=== PATIENT | female | born 1960 | race American Indian/Alaskan Native ===

== ENCOUNTER 2017-12-29 19:05 | Observation (INO) | payer OTHER ==
[2017-12-29] MEDS ORDERED: ASPIRIN PO ONE (19:43)
[2017-12-29] MEDS ORDERED: CATAPRES ONE (20:10)
[2017-12-29] MEDS ORDERED: CATAPRES PO ONE (20:15)
[2017-12-29 20:36] LABS: Basophils % (Auto) 0.5 % (0.0-1.8); Eosinophils % (Auto) 0.9 % (0.0-4.3); Hemoglobin 12.4 gm/dl (10.1-14.3); Lymphocytes # (Auto) 1.7 K/mm3 (1.2-5.4); Lymphocytes % (Auto) 45.1 % (13.4-35.0); Mean Corpuscular HGB Conc 33 % (30-34); Mean Corpuscular Hemoglobin 33 pg (28-32); Mean Corpuscular Volume 99 fl (79-97); Monocytes # (Auto) 0.3 K/mm3 (0.0-0.8); Monocytes % (Auto) 7.1 % (0.0-7.3); Platelet Count 261 K/mm3 (140-440); Red Blood Count 3.76 M/mm3 (3.65-5.03); Red Cell Distribution Width 14.6 % (13.2-15.2)
[2017-12-29 20:45] LABS: INR 0.83 (0.87-1.13)
[2017-12-29 20:46] LABS: Thrombin Time 14.8 Sec. (15.1-19.6)
[2017-12-29 21:02] LABS: BUN/Creatinine Ratio 18; Blood Urea Nitrogen 16 mg/dL (7-17); Calcium 10.1 mg/dL (8.4-10.2); Hemolysis Index 10
--- NOTE | 2017-12-29 21:21 | Cat Scan Report ---
FINAL REPORT PROCEDURE: CT HEAD/BRAIN WO CON TECHNIQUE: Computerized tomography of the head was performed without contrast material. HISTORY: neuro deficits < 6hrs or sx present upon awakening COMPARISON: No prior studies are available for comparison. FINDINGS: Brain: Brain density appears normal. No evidence of intracranial hemorrhage. No parenchymal hemorrhage, mass lesions or mass effect are seen. No abnormal extraxial fluid collects or masses are seen. Ventricles: Ventricles are normal size and are midline. Bone Windows: No evidence of skull fracture. Paranasal sinuses: Clear Mastoid air cells: Clear IMPRESSION: Negative unenhanced CT scan of the brain. If symptoms persist or worsen consider follow-up CT scan or MRI for further evaluation
[2017-12-30] MEDS ORDERED: ULTRAM PO ONE (01:28)
[2017-12-30] MEDS ORDERED: NEURONTIN PO ONE (01:28)
--- NOTE | 2017-12-30 01:39 | Emergency Department Report ---
ED Chest Pain HPI - General Chief Complaint: Chest Pain Stated Complaint: HYPERTENSIVE Time Seen by Provider: 12/30/17 01:16 Source: patient, old records reviewed (no cardiac workup on record) Mode of arrival: Ambulatory Limitations: No Limitations - History of Present Illness Initial Comments: 57-year-old female with past medical history diabetes, hypertension, and neck fusion surgery presents to the hospital with complaints of uncontrolled blood pressure, headache, and left arm paresthesias. Patient has had a left arm paresthesias in the past that improved after neck fusion surgery 2-3 years ago. For the past 1 month patient has been re- experiencing left arm paresthesias. No recent trauma or injury reported. Patient was treated in the past with gabapentin and tramadol which helped pain at the time. Patient has had a intermittent stabbing occipital headache with blurry vision for the last several days. Patient also complains of intermittent stabbing left chest pain but denies shortness of breath, leg edema, calf tenderness. Patient did recently return from a trip to [place] via car. Patient has recently back and forth to her PMD office Dr. Rios. She presents with recent paperwork from primary care doctor's office. She was seen on December 25 and blood pressure was 214/116. She was received clonidine and Toradol while in at the office. Blood pressure decreased prior to discharge she followed up the next day and states systolic pressure was in the 170s. Patient was started on clonidine 0.2 mg at bedtime, amlodipine 5 mg daily, and to continue lisinopril hydrochlorothiazide 20-12.5 mg 2 tablets daily. Patient reports that her last stress test was 5 years ago and she does not have any known cardiac disease. Patient was also be started on Naprosyn and cyclobenzaprine for left arm pain symptoms. Severity scale (0 -10): 5 - Related Data Previous Rx's Medication Instructions Recorded Last Taken Type Ibuprofen [Motrin] 800 mg PO Q8H #30 tablet 09/04/14 Unknown Rx methOCARBAMOL [Robaxin] 500 mg PO BID #30 tab 09/04/14 Unknown Rx traMADol [Ultram 50 MG tab] 50 mg PO Q6HR PRN #20 tablet 09/04/14 Unknown Rx Sulfamethoxazole/Trimethoprim 1 each PO BID #14 tablet 02/16/16 Unknown Rx [Bactrim DS TAB] Allergies Allergy/AdvReac Type Severity Reaction Status Date / Time No Known Allergies Allergy Verified 02/16/16 18:00 Heart Score - HEART Score History: Slightly suspicious EKG: Normal Age: 45-65 Risk factors: > 3 risk factors or hx of atherosclerotic disease Troponin: < normal limit HEART Score: 3 ED Review of Systems ROS: Stated complaint: HYPERTENSIVE Other details as noted in HPI Comment: All other systems reviewed and negative ED Past Medical Hx - Past Medical History Previous Medical History?: Yes Hx Hypertension: Yes Hx Diabetes: Yes (oral meds) Additional medical history: as per PMD office chart: Chronic left shoulder pain , psoriasis, mixed hyperlipidemia, mild intermittent asthma, cevicalgia, degenerative disc - Surgical History Past Surgical History?: Yes Additional Surgical History: CYSTS REMOVED BOTH OVARIES. neck, right eye surgery - Social History Smoking Status: Former Smoker - Medications Home Medications: Home Medications Medication Instructions Recorded Confirmed Last Taken Type Ibuprofen [Motrin] 800 mg PO Q8H #30 tablet 09/04/14 Unknown Rx methOCARBAMOL [Robaxin] 500 mg PO BID #30 tab 09/04/14 Unknown Rx traMADol [Ultram 50 MG tab] 50 mg PO Q6HR PRN #20 tablet 09/04/14 Unknown Rx Sulfamethoxazole/Trimethoprim 1 each PO BID #14 tablet 02/16/16 Unknown Rx [Bactrim DS TAB] ED Physical Exam - General Limitations: No Limitations - Other Other exam information: General: No limitations, patient is alert in no acute distress Head exam: Atraumatic, normocephalic Eyes exam: Normal appearance, pupils equal reactive to light, extraocular movements intact ENT: Moist mucous membrane, normal oropharynx Neck exam: Normal inspection, full range of motion, no meningismus nontender Respiratory exam: Clear to auscultation bilateral, no wheezes, rales, crackles Cardiovascular: Normal rate and rhythm, normal heart sounds Abdomen: Soft, nondistended, and nontender, with normal bowel sounds, no rebound, or guarding Extremity: Full range of motion normal inspection no deformity Back: Normal Inspection, full range of motion, no tenderness Neurologic: Alert, oriented x3, cranial nerves intact, 5/5 upper and lower extremity strength. Decreased sensation to light touch of the left arm compared to the right Psychiatric: normal affect, normal mood Skin: Warm, dry, intact ED Course Vital Signs 12/29/17 12/29/17 12/29/17 19:24 19:33 20:28 Temperature 98.3 F 98.3 F Pulse Rate 72 68 68 Respiratory 18 18 Rate Blood Pressure 201/85 201/88 201/88 Blood Pressure [Right] O2 Sat by Pulse 95 97 Oximetry 12/29/17 12/30/17 12/30/17 22:59 01:12 01:20 Temperature Pulse Rate 60 60 60 Respiratory 20 18 Rate Blood Pressure 180/79 Blood Pressure 175/79 [Right] O2 Sat by Pulse 100 99 Oximetry 12/30/17 01:30 Temperature Pulse Rate 58 L Respiratory 17 Rate Blood Pressure 155/72 Blood Pressure [Right] O2 Sat by Pulse 99 Oximetry - Reevaluation(s) Reevaluation #1: 12/30/17 01:42 Tramadol and Neurontin noted for pain. D-dimer pending MILAD score - Milad Score Age > 65: (0) No Aspirin use within the Past 7 Days: (0) No 3 or more CAD Risk Factors: (1) Yes 2 or more Angina events in past 24 hrs: (1) Yes Known CAD with more than 50% Stenosis: (0) No Elevated Cardiac Markers: (0) No ST Deviation Greater than 0.5mm: (0) No MILAD Score: 2 ED Medical Decision Making - Lab Data Result diagrams: 12/29/17 20:02 12/29/17 20:02 Lab Results 12/29/17 12/29/17 12/29/17 Range/Units 20:02 20:02 20:20 WBC 3.7 L (4.5-11.0) K/mm3 RBC 3.76 (3.65-5.03) M/mm3 Hgb 12.4 (10.1-14.3) gm/dl Hct 37.0 (30.3-42.9) % MCV 99 H (79-97) fl MCH 33 H (28-32) pg MCHC 33 (30-34) % RDW 14.6 (13.2-15.2) % Plt Count 261 (140-440) K/mm3 Lymph % (Auto) 45.1 H (13.4-35.0) % Dawes % (Auto) 7.1 (0.0-7.3) % Eos % (Auto) 0.9 (0.0-4.3) % Baso % (Auto) 0.5 (0.0-1.8) % Lymph # 1.7 (1.2-5.4) K/mm3 Dawes # 0.3 (0.0-0.8) K/mm3 Eos # 0.0 (0.0-0.4) K/mm3 Baso # 0.0 (0.0-0.1) K/mm3 Seg Neutrophils % 46.4 (40.0-70.0) % Seg Neutrophils # 1.7 L (1.8-7.7) K/mm3 PT 11.8 L (12.2-14.9) Sec. INR 0.83 L (0.87-1.13) APTT 32.0 (24.2-36.6) Sec. Thrombin Time 14.8 L (15.1-19.6) Sec. D-Dimer (0-234) ng/mlDDU Sodium 141 (137-145) mmol/L Potassium 4.0 (3.6-5.0) mmol/L Chloride 101.7 (98-107) mmol/L Carbon Dioxide 28 (22-30) mmol/L Anion Gap 15 mmol/L BUN 16 (7-17) mg/dL Creatinine 0.9 (0.7-1.2) mg/dL Estimated GFR > 60 ml/min BUN/Creatinine Ratio 18 % Glucose 97 (65-100) mg/dL Calcium 10.1 (8.4-10.2) mg/dL Troponin T < 0.010 (0.00-0.029) ng/mL 12/29/17 12/30/17 Range/Units 23:13 01:50 WBC (4.5-11.0) K/mm3 RBC (3.65-5.03) M/mm3 Hgb (10.1-14.3) gm/dl Hct (30.3-42.9) % MCV (79-97) fl MCH (28-32) pg MCHC (30-34) % RDW (13.2-15.2) % Plt Count (140-440) K/mm3 Lymph % (Auto) (13.4-35.0) % Dawes % (Auto) (0.0-7.3) % Eos % (Auto) (0.0-4.3) % Baso % (Auto) (0.0-1.8) % Lymph # (1.2-5.4) K/mm3 Dawes # (0.0-0.8) K/mm3 Eos # (0.0-0.4) K/mm3 Baso # (0.0-0.1) K/mm3 Seg Neutrophils % (40.0-70.0) % Seg Neutrophils # (1.8-7.7) K/mm3 PT (12.2-14.9) Sec. INR (0.87-1.13) APTT (24.2-36.6) Sec. Thrombin Time (15.1-19.6) Sec. D-Dimer 238.66 H (0-234) ng/mlDDU Sodium (137-145) mmol/L Potassium (3.6-5.0) mmol/L Chloride (98-107) mmol/L Carbon Dioxide (22-30) mmol/L Anion Gap mmol/L BUN (7-17) mg/dL Creatinine (0.7-1.2) mg/dL Estimated GFR ml/min BUN/Creatinine Ratio % Glucose (65-100) mg/dL Calcium (8.4-10.2) mg/dL Troponin T < 0.010 (0.00-0.029) ng/mL - EKG Data -: EKG Interpreted by Ak EKG shows normal: sinus rhythm, axis (qrs 59), QRS complexes (qrsd 96), ST-T waves (no stemi) Rate: normal (66) - EKG Data When compared to previous EKG there are: previous EKG unavailable 12/30/17 02:02 repeat ekg at 1:51 am sinus rate 57, qrs axis 40, arsd 97, no stemi/t inv - Radiology Data Radiology results: report reviewed FINAL REPORT PROCEDURE: CT HEAD/BRAIN WO CON TECHNIQUE: Computerized tomography of the head was performed without contrast material. HISTORY: neuro deficits lt; 6hrs or sx present upon awakening COMPARISON: No prior studies are available for comparison. FINDINGS: Brain: Brain density appears normal. No evidence of intracranial hemorrhage. No parenchymal hemorrhage, mass lesions or mass effect are seen. No abnormal extraxial fluid collects or masses are seen. Ventricles: Ventricles are normal size and are midline. Bone Windows: No evidence of skull fracture. Paranasal sinuses: Clear Mastoid air cells: Clear IMPRESSION: Negative unenhanced CT scan of the brain. If symptoms persist or worsen consider follow-up CT scan or MRI for further evaluation - Medical Decision Making cp atypical but several cardiac risk factors Recent travel but d-dimer less than 250. For CT angiogram not performed Cardiac enzymes negative 2, EKG unremarkable Aspirin provided We'll admit for further cardiac evaluation Hypertension Uncontrolled despite recent outpatient medication adjustment Patient having associated symptoms including intermittent headache and chest pain CT head unremarkable BP improved with clonidine in the ED Left arm paresthesia Likely related to cervical radiculopathy Gabapentin and tramadol provided Patient has been back and forth to primary care office and continues to have symptoms and uncontrolled blood pressure and therefore be admitted for further treatment. - Differential Diagnosis mi, pe, htn emerg, ich, cva, radiculopathy, atypical cp Critical Care Time: No Critical care attestation.: If time is entered above; I have spent that time in minutes in the direct care of this critically ill patient, excluding procedure time. ED Disposition Clinical Impression: Uncontrolled hypertension, Chest pain, Headache, Cervical radiculopathy Disposition: 09 OP ADMIT IP TO THIS HOSP Is pt being admited?: Yes Does the pt Need Aspirin: Yes Condition: Stable Time of Disposition: 02:34 (Dr Romano/hosp)
[2017-12-30] MEDS ORDERED: ASPIRIN ONE (01:59)
--- NOTE | 2017-12-30 03:11 | XRay Report ---
FINAL REPORT PROCEDURE: XR CHEST ROUTINE 2V TECHNIQUE: Computerized axial tomographic angiography of the chest and pulmonary arteries was performed after the IV injection of iodinated nonionic contrast. The image data was postprocessed using maximum intensity projection (MIP) and 2-dimensional multiplanar reformatted (MPR) techniques. The examination is specifically tailored to the evaluation of the pulmonary arteries per clinical request. HISTORY: Short of breath 786.09, chest pain 786.50, cp COMPARISON: No prior studies are available for comparison. FINDINGS: Heart and pericardium: Normal. Thoracic aorta: Normal. Pulmonary vasculature: Normal. No pulmonary emboli. Lymph nodes: No enlarged thoracic lymph nodes. Lungs: Lungs are clear. There are no infiltrates, effusions or pneumothoraces.. Pleural space: No effusion, thickening, or pneumothorax. Musculoskeletal structures: No significant abnormality. Upper abdominal structures: No significant abnormality. IMPRESSION: Normal heart and lungs..
[2017-12-30] MEDS ORDERED: NITROSTAT SL PRN (03:30)
[2017-12-30] MEDS ORDERED: TYLENOL PO PRN (03:31)
[2017-12-30] MEDS ORDERED: MORPHINE IV PRN (03:32)
[2017-12-30] MEDS ORDERED: ZOFRAN IV PRN (03:32)
--- NOTE | 2017-12-30 05:16 | History and Physical Report ---
CHIEF COMPLAINT: Chest pain. OTHER COMPLAINT: Include elevated blood pressure and tingling sensation in the left upper extremity. HISTORY OF PRESENT ILLNESS: The patient is a 57-year-old female who has been having paresthesia in the left arm going on for about one month. The patient states the symptoms has been on and off and she has had these way back 2-3 years ago after having neck fusion surgery; however, the paresthesia started recurring about a month ago and there was no associated trauma and also, the patient developed chest pain, which she described as stabbing chest pain that started in the last few days and pain was associated with diaphoresis, but no shortness of breath. The patient is complaining of headache and blurry vision. Denies history of nausea, vomiting, and presented to the Emergency Room where she was evaluated and treated for uncontrolled blood pressure and during the treatment, the patient stated that the chest pain resolved. PAST MEDICAL HISTORY: Pertinent for hypertension. Also, the patient has past history of diabetes mellitus and paresthesia. PAST SURGICAL HISTORY: Pertinent for neck fusion surgery. FAMILY HISTORY: Pertinent for coronary artery disease in both the parents and in the brother. SOCIAL HISTORY: The patient used to smoke cigarette and quit smoking about a year ago. Does not drink alcohol, does not use illicit drugs. MEDICATIONS: The patient is on ibuprofen 800 mg every 8 hours, Robaxin 500 mg by mouth twice daily, tramadol 50 mg by mouth every six hours as needed for pain, Bactrim double strength one by mouth twice daily. ALLERGIES: There are no known drug allergies. REVIEW OF SYSTEMS: CONSTITUTIONAL: There is no fever, no chills. Diaphoresis present. HEENT: There is headache with no sore throat. CARDIOVASCULAR SYSTEM: Chest pain is present. No orthopnea. RESPIRATORY SYSTEM: There is no shortness of breath and no cough. GASTROINTESTINAL SYSTEM: There is no nausea, no vomiting, no abdominal pain, diarrhea or constipation. NEUROLOGICAL SYSTEM: There is a paresthesia of the left upper extremity and blurry vision with no change in mental status. MUSCULOSKELETAL SYSTEM: There is no joint pain or swelling. DERMATOLOGICAL SYSTEM: There is no skin rash or itching. GENITOURINARY SYSTEM: There is no dysuria, hematuria, or flank pain. Rest of system review is normal. PHYSICAL EXAMINATION: GENERAL: At the time of exam, the patient was found to be alert, oriented x 3, and not in acute distress. VITAL SIGNS: Shows normal temperature with pulse of 63, respiration 20, blood pressure 149/83, O2 sat 100% on room air. HEENT: Exam showed pupils to be equal, round, and reactive to light and accommodation. Extraocular muscles intact. NECK: Supple with no JVD or carotid bruit. CARDIOVASCULAR SYSTEM: Showed normal first and second heart sounds with no gallops or murmurs. RESPIRATORY SYSTEM: Showed good air entry on both sides of the lungs with no abnormal breath sounds. GASTROINTESTINAL SYSTEM: Show abdomen to be full, soft, nontender with no organomegaly or rigidity. NEURO: Exam shows no deficits. MUSCULOSKELETAL SYSTEM: Show no joint swelling or tenderness. DERMATOLOGICAL SYSTEM: Show no skin rash. GENITOURINARY: Showing no costovertebral angle tenderness. PERTINENT LABORATORY AND IMAGING STUDIES: The patient has a CT of the head without contrast done that shows no acute lesion. Also, the patient had a chest x-ray done that was unremarkable. The patient's lab test shows CBC with normal hemoglobin and normal hematocrit and elevated MCV of 99, with CBC differential showing high lymphocyte count of 45.1%, with coagulation studies showing elevated D-dimer of 238. Patient's chemistry was unremarkable. Cardiac enzymes show normal troponin. DIAGNOSES: 1. Chest pain. 2. Uncontrolled hypertension. 3. Left arm paresthesia. CARE OF PLAN: 1. The patient will be admitted to telemetry and we will have cardiac enzymes including troponin, total CK, and CK-MB checked every 6 hours x 2 more levels. The patient will have MRI of the brain without contrast done in the morning. 2. The patient will have Neurology consult with Dr. Sachin Méndez because of the left arm paresthesia, blurry vision, and headache in the morning. 3. The patient will be nothing by mouth. 4. Recurrent stress test in the morning. 5. The patient will be on aspirin 325 mg daily and will be on nitro paste 1-inch to anterior chest wall four times a day as well as intravenous morphine 2 mg every 3 hours as needed for pain and will be on sublingual nitroglycerin 0.4 mg every 5 minutes as needed for breakthrough chest pain. 6. The patient will be on Zofran 4 mg every 8 hours as needed for nausea and vomiting. 7. The patient will be on oxygen by nasal cannula 2 liter per minute. JOB# [id number] OCN/KACY
[2017-12-30 06:19] LABS: Creatine Kinase MB 1.3 ng/mL (0.0-4.0)
[2017-12-30] MEDS: NITRO-BID 2% TP SCH ×2 (07:17→13:16)
[2017-12-30] MEDS ORDERED: LEXISCAN IV ONE ×2 (09:08→09:16)
[2017-12-30] MEDS ORDERED: ASPIRIN PO SCH (10:00)
--- NOTE | 2017-12-30 12:25 | Magnetic Resonance Report ---
MRI OF THE BRAIN WITHOUT CONTRAST: HISTORY: Paresthesia and left arm PROCEDURE: Multiplanar, multisequence MR imaging of the brain without IV contrast was performed. FINDINGS: Compared to the CT head performed 12/29/17. The brain parenchyma signal intensity and its hicks white interface are within normal limits on all sequences. No evidence for acute ischemia, hemorrhage or mass. No chronic infarct or extra-axial fluid collection. The midline structures are central. The basal cisterns are patent. Normal ventricular size. The orbital cavities and sella turcica demonstrate no abnormality. The visualized paranasal sinuses and mastoid air cells are well aerated. IMPRESSION: Unremarkable non-enhanced MRI of the brain.
--- NOTE | 2017-12-30 12:55 | Discharge Summary ---
Providers - Providers Date of Admission: 12/30/17 03:15 Attending physician: YANA PULIDO MD 12/30/17 06:19 Consult to Physician [CONS] Routine Comment: Consulting Provider: ANTONIO JI Physician Instructions: Reason For Exam: LEFT ARM PARASTHESIA Primary care physician: RELAY RECORD CLERK Hospitalization Reason for admission: chest pain Condition: Stable Hospital course: Patient is a 57 year old female admitted with parasthesia in the left arm for about a month, patient about 2-3 years ago had neck fusion surgery prior to presenting this time the patient also reported chest pain, and diaphoresis. Patient went further to get stress test and Mri Brain and both are negative. patients reports headache and with photophobia prompting a diagnosis of Migraine. Hemiplegic Migraine Atypical chest pain secondary to costochondritis Hypertension uncontrolled migraine Disposition: - TO HOME OR SELFCARE Time spent for discharge: 35 mins Core Measure Documentation - Palliative Care Palliative Care/ Comfort Measures: Not Applicable - Core Measures Any of the following diagnoses?: none - VTE Discharge Requirements Deep Vein Thrombosis/Pulmonary Embolism Present on Admission: No Exam - Constitutional Vitals: Temp Pulse Resp BP Pulse Ox 97.9 F 73 20 139/80 98 12/30/17 07:37 12/30/17 09:41 12/30/17 07:37 12/30/17 09:41 12/30/17 10:00 General appearance: Present: no acute distress, well-nourished - EENT Eyes: Present: PERRL, EOM intact ENT: hearing intact - Neck Neck: Present: supple, normal ROM - Respiratory Respiratory effort: normal Respiratory: bilateral: CTA - Cardiovascular Rhythm: regular Heart Sounds: Present: S1 & S2 - Extremities Extremities: no ischemia, pulses intact, pulses symmetrical, No edema, Full ROM Peripheral Pulses: within normal limits - Abdominal General gastrointestinal: Present: soft, non-tender, non-distended, normal bowel sounds - Integumentary Integumentary: Present: clear, warm, dry - Musculoskeletal Musculoskeletal: strength equal bilaterally - Psychiatric Psychiatric: appropriate mood/affect - Neurologic Neurologic: CNII-XII intact, moves all extremities - Allied Health Allied health notes reviewed: nursing Plan Activity: advance as tolerated, fall precautions Diet: low fat Special Instructions: record daily BP diary, physical therapy, occupational therapy Additional Instructions: outpatient MRI cervical spine to be arranged by PCP Follow up with: PRIMARY CARE,MD [Primary Care Provider] - 3-5 Days PARKER JOY MD [Staff Physician] - 7 Days Prescriptions: AtorvaSTATin [Lipitor] 40 mg PO QHS #30 tab Aspirin [Aspirin TAB] 325 mg PO QDAY #30 tablet Butalb/Acetamin/Caff 50-325-40 [Fioricet] 1 tab PO Q8HR PRN #30 tablet PRN Reason: Headache
[2017-12-30 13:16] VITALS: BP 161/77
[2017-12-30 14:01] LABS: Creatine Kinase MB 1.4 ng/mL (0.0-4.0)
--- NOTE | 2017-12-30 19:37 | Treadmill Report ---
NUCLEAR PERFUSION SCAN REFERRING PHYSICIAN: Garth Romano MD PROTOCOL: The patient was brought to the stress lab in a postictal state, given 10 mCi of technetium 99m at rest. The patient underwent rest imaging. The patient underwent Lexiscan stress test. At peak stress, the patient was given 26 mCi of technetium 99m. Shortly thereafter, the patient underwent stress imaging, raw imaging reveals mild GI artifact, no significant motion artifact. SPECT imaging examined carefully in the horizontal long axis, vertical long axis, short axis views. There is normal homogenous uptake of radioisotope in all reported segments. No evidence of significant fixed or reversible perfusion defects suggestive of prior infarction or ischemia. Gated wall motion reveals normal systolic thickening, calculated ejection fraction of 50%. No TID. CONCLUSIONS: 1. Normal myocardial perfusion scan without evidence of active ischemia or prior infarction. 2. Low normal systolic performance with a calculated ejection fraction of 50% without evidence of transient ischemic dilatation or stress-induced segmental wall motion abnormalities. JOB# [id number] SBWilmar/NTS
--- NOTE | 2018-01-05 17:14 | Query- Chest Pain ---
Lisette Lynn__Miki Date:___01/05/2018 Brass Finisher/CDS:__Luna/Amber Phone#:____[phone] Exercise your independent professional judgment when responding to query. Questions asked do not imply a particular answer is desired or expected. We greatly appreciate your clarification on this issue. Clinical Documentation States: 57 Year old female was admitted on 12/30/2017 for Chest pain. The ED note stated "presents to the hospital with complaints of uncontrolled blood pressure, headache, and left arm paresthesias." Please document the etiology of Chest Pain: [ ] Myocardial Infarction [ ] Pneumonia [ ] Mediastinitis [x ] Costochondritis [ ] Pulmonary Embolism [ ] Coronary Artery Disease [ ] GERD [ ] Other: [ ] Comment/Explanation: Present on Admission: [x ] Yes (Y) [ ] Clinically undeterminable (W) [ ] No(N) Please document response in your Progress Notes and/or Discharge Summary and indicate if the condition was present on admission. DOUGLAS
== END 2017-12-30 16:30 | disposition home or self-care (01) ==
LOC: ED 19:05 → 4A 12-30 03:15 → INTOOBSV 12-30 03:15
PROVIDERS: ADMIT Internal Medicine; ATTEND Internal Medicine
DX: R07.89 Other chest pain (principal); I10 Essential (primary) hypertension; R20.2 Paresthesia of skin; E11.9 Type 2 diabetes mellitus without complications; Z79.899 Other long term (current) drug therapy; Z82.49 Family history of ischemic heart disease and other diseases of the circulatory system; Z87.891 Personal history of nicotine dependence
CPT/HCPCS: 36415; 70450; 70551; 71046; 78452; 80048; 82550; 82553; 82962; 84484; 85025; 85379; 85610; 85670; 85730; 93005; 93010; 93017; 96374; 99285; A9502; G0378; J2270; J2785